=== PATIENT | female | born 1965 | race Caucasian/White ===

== ENCOUNTER 2020-01-06 13:55 | Emergency (ER) | payer SELFPAY ==
[~2020-01-06] VITALS: Ht 167.6 cm; Wt 75.7 kg
[2020-01-06] MEDS ORDERED: IV NORMAL SALINE 1,000ML 1,000 ML IV ONE (14:00)
--- NOTE | 2020-01-06 14:18 | RAD ---
CT CODE STROKE HEAD WO History: Altered mental status, weakness, unable to talk Comparison: None. Technique: Noncontrast CT imaging was performed of the head. Exposure: One or more of the following individualized dose reduction techniques were utilized for this examination: 1. Automated exposure control 2. Adjustment of the mA and/or kV according to patient size 3. Use of iterative reconstruction technique. Findings: There is some motion degradation. There is no evidence of acute intracranial hemorrhage. There are some patchy foci of ill-defined low-density of the supratentorial white matter bilaterally greatest of the bilateral parietal lobes. There is no midline shift. Ventricular size is within normal limits. Visualized paranasal sinuses are aerated other than left maxillary sinus mucous retention cyst about 0.7 cm. Mastoid air cells are aerated. Impression: 1. There is no evidence of acute intracranial hemorrhage. 2. There is patchy ill-defined low-density of the supratentorial parenchyma bilaterally greatest of the bilateral parietal lobes, could be due to chronic microvascular ischemic disease or sequela of demyelination. Critical Results were discussed with CHEKO HUTCHINSON at 01/06/2020 2:14 PM. Electronically signed by: Viraj Miller MD (01/06/2020 2:16 PM) [id number]
[2020-01-06 14:27] LABS: BASO % 0 % (0-3); EOS # 0.1 x10^3/uL (0.0-0.7); EOS % 1 % (0-3); HEMATOCRIT 36.7 % (36.0-47.0); HEMOGLOBIN 11.9 g/dL (12.0-15.5); LYMPH # 2.2 x10^3/uL (1.0-4.8); LYMPH % 46 % (24-48); MEAN CORPUSCULAR HEMOGLOBIN 32 pg (25-35); MEAN CORPUSCULAR HGB CONC 32 g/dL (31-37); MEAN CORPUSCULAR VOLUME 98 fL (79-100); MONO # 0.4 x10^3/uL (0.0-1.1); MONO % 8 % (0-9); NEUT # 2.2 x10^3uL (1.8-7.7); NEUT % 45 % (31-73); PLATELET COUNT 190 x10^3/uL (140-400); RED BLOOD COUNT 3.76 x10^6/uL (3.50-5.40); RED CELL DISTRIBUTION WIDTH 16.8 % (11.5-14.5); WHITE BLOOD COUNT 4.9 x10^3/uL (4.0-11.0)
[2020-01-06 14:31] LABS: CALCIUM 7.9 mg/dL (8.5-10.1); CREATININE 0.6 mg/dL (0.6-1.0); GFR 103.8
--- NOTE | 2020-01-06 14:33 | PHYS DOC ---
Past History Past Medical History: Bipolar, Other Additional Past Medical Histor: MS Past Medical History Limited due to altered mental status Past Surgical History: Appendectomy, Tubal ligation Past Surgical History Limited due to altered mental status Smoking: Less than 1pk/day Alcohol Use: Heavy Social History Narrative: ACID Social History Limited due to altered mental status Adult General Chief Complaint Chief Complaint: NEURO SYMPTOMS/DEFICITS HPI HPI Patient is a 54 year-old female who presents after she was found on the floor of her work ([employer]) breakroom. EMS was called and when they arrived she was only responsive only to pain. Glucose was 95. She was not able to answer any other questions regarding how she ended up on the floor because she says she "doesn't know what happened". She stated that last night she drank a pint of vodka. She denies taking any other medications and drug use. She reports that she has a history of MS, diagnosed in 1999. She says that she has been feeling weak for the past 6 weeks. She also reports headache and blurry vision, but denies double vision. She denies any pain. She also reports that she was recently diagnosed with sinus infection and is currently taking antibiotics, but she could not remember the name. History of present illness, limited due to altered mental status. Review of Systems Review of Systems Constitutional: Denies fever or chills Eyes: Denies redness or eye pain, Reports blurry vision HENT: Reports rhinorrhea, Denies nasal congestion or sore throat Respiratory: Denies cough or shortness of breath Cardiovascular: Denies chest pain or palpitations GI: Denies abdominal pain, nausea, or vomiting : Denies dysuria or hematuria Musculoskeletal: Denies back pain or joint pain Integument: Denies rash or skin lesions Neurologic: Reports headache, Reports diffuse weakness and sensory changes of her right leg Review of systems limited due to altered mental status Current Medications Current Medications Current Medications Medications (Trade) Dose Ordered Sig/Lisseth Start Time Stop Time Status Last Admin Dose Admin Sodium Chloride 1,000 ml @ 1,000 mls/hr 1X ONCE 01/06/20 14:00 01/06/20 14:59 UNV Physical Exam Physical Exam Constitutional: Well developed, well nourished, alcohol on breath, non-toxic appearance HENT: Normocephalic, atraumatic, oropharynx moist Eyes: PERRL, patient was uncooperative with commands to test gaze, conjunctiva normal, no discharge Neck: Normal range of motion, supple Cardiovascular: Heart rate normal, regular rhythm Lungs & Thorax: Bilateral breath sounds clear to auscultation, no wheezing Abdomen: Soft, no tenderness Skin: Warm, dry, no erythema, no rash Extremities: No tenderness, no edema Neurologic: , Patient uncooperative with neurologic exam, appears intoxicated/obtunded Psychologic: Affect abnormal, judgment abnormal Current Patient Data Vital Signs Vital Signs Date Time Temp Pulse Resp B/P (MAP) Pulse Ox O2 Delivery O2 Flow Rate FiO2 01/06/20 14:15 97.8 80 18 136/88 (104) 100 Room Air Lab Results Laboratory Tests Test 01/06/20 14:03 White Blood Count 4.9 x10^3/uL (4.0-11.0) Red Blood Count 3.76 x10^6/uL (3.50-5.40) Hemoglobin 11.9 g/dL (12.0-15.5) L Hematocrit 36.7 % (36.0-47.0) Mean Corpuscular Volume 98 fL (79-100) Mean Corpuscular Hemoglobin 32 pg (25-35) Mean Corpuscular Hemoglobin Concent 32 g/dL (31-37) Red Cell Distribution Width 16.8 % (11.5-14.5) H Platelet Count 190 x10^3/uL (140-400) Neutrophils (%) (Auto) 45 % (31-73) Lymphocytes (%) (Auto) 46 % (24-48) Monocytes (%) (Auto) 8 % (0-9) Eosinophils (%) (Auto) 1 % (0-3) Basophils (%) (Auto) 0 % (0-3) Neutrophils # (Auto) 2.2 x10^3uL (1.8-7.7) Lymphocytes # (Auto) 2.2 x10^3/uL (1.0-4.8) Monocytes # (Auto) 0.4 x10^3/uL (0.0-1.1) Eosinophils # (Auto) 0.1 x10^3/uL (0.0-0.7) Basophils # (Auto) 0.0 x10^3/uL (0.0-0.2) EKG EKG @1406 EKG performed and showed sinus rhythm with heart rate of [address] segment changes noted. Radiology/Procedures Radiology/Procedures CT CODE STROKE HEAD WO CT CODE STROKE HEAD WO History: Altered mental status, weakness, unable to talk Comparison: None. Technique: Noncontrast CT imaging was performed of the head. Exposure: One or more of the following individualized dose reduction techniques were utilized for this examination: 1. Automated exposure control 2. Adjustment of the mA and/or kV according to patient size 3. Use of iterative reconstruction technique. Findings: There is some motion degradation. There is no evidence of acute intracranial hemorrhage. There are some patchy foci of ill-defined low-density of the supratentorial white matter bilaterally greatest of the bilateral parietal lobes. There is no midline shift. Ventricular size is within normal limits. Visualized paranasal sinuses are aerated other than left maxillary sinus mucous retention cyst about 0.7 cm. Mastoid air cells are aerated. Impression: 1. There is no evidence of acute intracranial hemorrhage. 2. There is patchy ill-defined low-density of the supratentorial parenchyma bilaterally greatest of the bilateral parietal lobes, could be due to chronic microvascular ischemic disease or sequela of demyelination. Critical Results were discussed with CHEKO HUTCHINSON at 01/06/2020 2:14 PM. Electronically signed by: Viraj Miller MD (01/06/2020 2:16 PM) [id number] PORTABLE CHEST 1V AP chest. HISTORY: Altered mental status AP view was taken of the chest. Lungs are clear. Heart is normal in size without heart failure. There is no effusion. IMPRESSION: 1. No acute chest disease. Electronically signed by: Henri Menezes MD (01/06/2020 3:09 PM) [id number] Course & Med Decision Making Course & Med Decision Making Pertinent Labs and Imaging studies reviewed. (See chart for details) Patient is a 54-year-old female who presented to the ED after she was found lying on the floor of her work break room. EMS says she was unresponsive only to pain upon arrival. In the ED she was more responsive and was responding to questions and following some commands. Alcohol level was 258. Troponin, ammonia, and lactic acid were within normal limits. CT head performed and showed no acute intracranial abnormality. CXR performed and showed no acute processes. EKG performed and showed sinus rhythm with heart rate of 87 bpm and no acute ST segment changes. Patient monitored in ED until clinically sober. Patient able to walk with steady gait. Patient stable for discharge with outpatient follow-up with PCP. Drug and ETOH rehab resources provided. Discussed findings and plan with patient, who marta rouseledges understanding and agreement. Heena Disclaimer Dragon Disclaimer This electronic medical record was generated, in whole or in part, using a voice recognition dictation system. Departure Departure: Impression: Primary Impression: Alcohol abuse Additional Impression: Hx of multiple sclerosis Disposition: 01 HOME, SELF-CARE Condition: IMPROVED Referrals: PCP[facility]INE (PCP) Patient Instructions: Alcohol Intoxication, [id number], Alcohol and Drug Addiction, Finding Treatment Problem Qualifiers CHEKO HUTCHINSON DO Jan 06, 2020 14:33
[2020-01-06 14:48] LABS: ALBUMIN 3.3 g/dL (3.4-5.0); ALBUMIN/GLOBULIN RATIO 1.1 (1.0-1.7); TOTAL BILIRUBIN 0.1 mg/dL (0.2-1.0); TOTAL PROTEIN 6.4 g/dL (6.4-8.2)
[2020-01-06 15:07] LABS: ACETAMIN < 2.0 mcg/mL (10-30); SALIC 1.9 mg/dL (2.8-20.0)
--- NOTE | 2020-01-06 15:12 | RAD ---
AP chest. HISTORY: Altered mental status AP view was taken of the chest. Lungs are clear. Heart is normal in size without heart failure. There is no effusion. IMPRESSION: 1. No acute chest disease. Electronically signed by: Henri Menezes MD (01/06/2020 3:09 PM) [id number]
[2020-01-06 16:08] VITALS: BP 145/65
[2020-01-06 16:27] LABS: BARBITURATES NEG (NEG); BENZODIAZEPINES NEG (NEG); CANNABINOIDS NEG (NEG); COCAINE NEG (NEG); METHADONE NEG (NEG); OPIATES NEG (NEG); PHENCYCLIDINE NEG (NEG)
[2020-01-06 16:29] LABS: AMPHETAMINE/METHAMPHETAMINE NEG (NEG)
[2020-01-06 16:44] LABS: BACTERIA,URINE 0 /HPF (0-FEW); BILIRUBIN,URINE NEG (NEG); CLARITY,URINE CLEAR; COLOR,URINE YELLOW; GLUCOSE,URINE NEG (NEG); NITRITE,URINE NEG (NEG); RBC,URINE OCC /HPF (0-2); SQUAMOUS EPITHELIAL CELL,UR FEW /LPF; UROBILINOGEN,URINE 0.2 mg/dL (0.2 mg/dL); WBC,URINE OCC /HPF (0-4); YEAST,URINE PRESENT /HPF
--- NOTE | 2020-01-07 06:42 | EKG ---
[address] [address] Test Date: 2020-01-06 Test Time: 14:06:22 Pat Name: ELLE SPARROW Department: Room: Gender: F Evidence Technician: : 1966-01-06 Requested By: CHEKO HUTCHINSON Order Number: [id number] Reading MD: Measurements Intervals [place] Rate: 87 P: -8 NM: 152 QRS: 4 QRSD: 96 T: 50 QT: 354 QTc: 427 Interpretive Statements SINUS RHYTHM T ABNORMALITY IN ANTEROSEPTAL LEADS ABNORMAL ECG RI6.01 No previous ECG available for comparison
== END 2020-01-06 17:15 | disposition home or self-care (01) ==
LOC: EDBD 13:55 → ER 13:55
DX: F10.20 Alcohol dependence, uncomplicated (principal); R41.82 Altered mental status, unspecified; G35 Multiple sclerosis; F17.200 Nicotine dependence, unspecified, uncomplicated; F31.9 Bipolar disorder, unspecified; Y90.8 Blood alcohol level of 240 mg/100 ml or more
CPT/HCPCS: 36415; 70450; 71045; 80053; 80307; 80329; 81001; 82140; 82553; 82947; 83605; 83735; 84484; 85025; 85610; 85730; 87086; 93005; 96360; 96361; 99285; G0480; 82003; J7030